=== PATIENT | female | born 1965 | race African-American/Black ===

== ENCOUNTER 2021-04-30 17:09 | Emergency (ER) | payer MEDICAID, OTHER ==
[~2021-04-30] VITALS: Ht 144.8 cm; Wt 80.7 kg
[2021-04-30] MEDS ORDERED: LIDOCAINE 1% (LOCAL ANESTH.) PF 5ml SDV ID ONE (18:15)
[2021-04-30 20:00] VITALS: BP 181/88
[2021-04-30] MEDS ORDERED: SULF400T11 PO (21:44)
[2021-04-30] MEDS ORDERED: TRAM-297 PO (21:44)
== END 2021-04-30 21:48 | disposition home or self-care (01) ==
LOC: ER 17:09
DX: L02.512 Cutaneous abscess of left hand (principal); I10 Essential (primary) hypertension; E78.5 Hyperlipidemia, unspecified; Z88.1 Allergy status to other antibiotic agents
CPT/HCPCS: 26010

== ENCOUNTER 2022-06-21 09:16 | Emergency (ER) | payer MEDICAID ==
[~2022-06-21] VITALS: Ht 144.8 cm; Wt 82.7 kg
[~2022-06-21 09:16] MED LIST: IBU600T PO; SULF400T11 PO; TRAM-297 PO
[2022-06-21 10:00] VITALS: BP 147/80
[2022-06-21] MEDS ORDERED: PRED20TA2 PO (10:20)
[2022-06-21] MEDS ORDERED: AUG875T PO (10:20)
[2022-06-21] MEDS ORDERED: IBUP800T27 PO (10:20)
[2022-06-21] MEDS ORDERED: ACETAMINOPHEN 500 MG TAB PO ONE (10:30)
== END 2022-06-21 10:35 | disposition home or self-care (01) ==
LOC: ER 09:16
DX: H66.91 Otitis media, unspecified, right ear (principal); J03.90 Acute tonsillitis, unspecified
CPT/HCPCS: 71046; 93005

== ENCOUNTER 2023-03-14 11:05 | Emergency (ER) | payer MEDICAID ==
[~2023-03-14] VITALS: Ht 144.8 cm; Wt 85.0 kg
[~2023-03-14 11:05] MED LIST changes: +AUG875T PO; +CEPH500T PO; +IBUP-1456 PO; +MELO-335 PO; +PRED20TA2 PO
[2023-03-14 11:57] LABS: Basophils # (auto) 0 10 ^3/uL (0-0.2); Basophils % (auto) 0.2 % (0.0-2.0); Eosinophils # (auto) 0.1 10 ^3/uL (0-0.8); Eosinophils % (auto) 0.7 % (0.0-7.0); Hematocrit 44.9 % (36.0-46.0); Hemoglobin 14.8 g/dL (12.2-16.2); Lymphocytes # (auto) 1.6 10 ^3/uL (0.4-5.4); Lymphocytes % (auto) 17.7 % (10.0-50.0); Mean Corpuscular Volume 81.7 fL (80.0-100.0); Monocytes # (auto) 0.6 10 ^3/uL (0-1.3); Monocytes % (auto) 6.5 % (0.0-12.0); Neutrophils # (auto) 6.8 10 ^3/uL (1.6-8.6); Neutrophils % (auto) 74.9 % (37.0-80.0); Nucleated Red Blood Cells % 0.4 %; Red Cell Distribution Width 14.9 % (11.8-14.3); White Blood Cell 9.1 10^3/uL (4.4-10.8)
[2023-03-14 12:12] LABS: Alanine Aminotransferase 37 U/L (7-40); Albumin 4.8 g/dL (3.2-4.8); Alkaline Phosphatase 213 U/L (46-116); Anion Gap 11 (5-15); Aspartate Aminotransferase 15 U/L (13-40); Bilirubin, Total 0.5 mg/dL (0.2-1.0); Blood Urea Nitrogen 8 mg/dL (9-23); Calcium 10.1 mg/dL (8.5-10.1); Carbon Dioxide 24 mmol/L (20-30); Chloride 105 mmol/L (98-107); Potassium 3.7 mmol/L (3.5-5.1); Sodium 140 mmol/L (136-145); Total Protein 7.7 g/dL (5.7-8.2)
[2023-03-14 12:17] LABS: Glucose 495 mg/dL (74-106)
[2023-03-14 12:19] LABS: Base Excess -3.5 mmol/L (-2.0-2.0)
[2023-03-14 12:38] LABS: Urine Bacteria NONE SEEN /hpf (None Seen); Urine Blood Negative /uL (Negative); Urine Clarity Clear (Clear); Urine Protein, UAD Negative (Negative); Urine Specific Gravity 1.035 (1.001-1.035); Urine Urobilinogen Normal (Negative); Urine WBC 1 /hpf (0 - 5); Urine pH 5.5 (5.0-8.0)
[2023-03-14 12:42] LABS: Urine Color Yellow (Yellow)
[2023-03-14 13:00] VITALS: PULSE 106; RESP 14; O2SAT 93
[2023-03-14] MEDS ORDERED: SODIUM CHLORIDE 0.9% 2,000 ML IV ONE (13:00)
[2023-03-14] MEDS ORDERED: InsuLIN REG 1unit/0.01ml Soln (100units/ml) IV ONE (13:00)
[2023-03-14] MEDS ORDERED: METF-372 PO (13:13)
[2023-03-14 16:11] VITALS: BP 120/81; PULSE 100; RESP 16; TEMP 98.5; O2SAT 96
== END 2023-03-14 16:13 | disposition home or self-care (01) ==
LOC: ER 11:05
DX: E11.65 Type 2 diabetes mellitus with hyperglycemia (principal); E86.0 Dehydration; I10 Essential (primary) hypertension; E78.5 Hyperlipidemia, unspecified; Z98.890 Other specified postprocedural states; Z88.8 Allergy status to other drugs, medicaments and biological substances; Z79.899 Other long term (current) drug therapy
CPT/HCPCS: 36415; 36600; 80053; 81001; 82010; 82805; 82962; 83605; 85025; 93005; 96361; 96374; 99284; J1815; J7030